=== PATIENT | female | born 1955 | race Caucasian/White ===

== ENCOUNTER 2020-02-12 12:00 | Outpatient (RCR) | payer MEDICARE, MEDICAID, SELFPAY ==
--- NOTE | 2020-01-13 13:58 | MHC.PT.EP ---
[facility] [place] Office [place] [facility] [place] [facility] [address] Johnathan Smith [address] [phone] F: [phone] F: [phone] F: [phone] F: [phone] Physical Therapy Plan of Care Date of Evaluation: 01/13/20 Date of Surgery: N/A Diagnosis: M54.5 low back pain Assessment: pt presents w/ some signs and symptoms consistent w/ kidney involvement. Will monitor and refer as needed. pt presents to physical therapy with pain, decreased range of motion, decreased strength, impaired functional mobility, impaired postural awareness, and gait deviations. pt is a fair candidate for skilled PT due to age, potential remediation of impairments, typical disease/condition progression and prognosis, comorbidities, and motivation. pt would benefit from tailored strengthening and stretching exercise program, functional training, gait training, postural re-training, neuromuscular re-education, modalities as needed for pain, and equipment safety demonstration. Frequency and Duration: The patient will be seen 2x/wk for 4 wks Short Term Goals: pt will be I w/ HEP to promote self-management of condition. pt will demo proper sitting posture w/ lumbar roll to promote neutral spine. Penitentiary Goals: pt will improve B hip flexion strength by 1 MMT grade to facilitate normalized gait pattern on even ground. pt will report statistically significant improvement in self-reported outcome measure, Sampson, to facilitate return to PLOF. Treatment Plan: Modalities to reduce pain, spasms and effusion. Manual therapy to restore motion and function. Therapeutic exercise to improve strength and flexibility. Neuromuscular re-education for posture and balance. Therapeutic activities to return to functional activities of daily living. Please sign and return to therapist. Thank you for your referral.
--- NOTE | 2020-02-12 12:42 | MHC.PT.DC ---
[facility] [place] Office [place] Office [place] [facility] [address] Johnathan Smith [address] [phone] F: [phone] F: [phone] F: [phone] F: [phone] Physical Therapy Discharge Report Diagnosis: M54.5 low back pain Date of Surgery: N/A Date of Evaluation: 01/13/20 Date of Discharge: 02/12/20 Treatments to Date: 8 Cancellations to Date: 0 No Shows to Date: 0 Discharge Status: Improved Function Independent with HEP Discharge Summary: Overall, the patient has been reporting lower levels of back pain since starting physical therapy. She was not always motivated to participate in physical therapy and often would request to leave the session early. She is independent with her home exercise program. She reported a slight improvement in her self-reported outcome measure, the Modified Oswestry Disability Index, compared to the initial evaluation. She is discharged from this physical therapy plan of care. Electronically signed by: Loretta Maurer PT, DPT Please sign and return to therapist. Thank you for your referral.
== END 2020-02-12 12:42 | disposition other institution (70) ==
LOC: HO.PT 12:00
PROVIDERS: Visit Provider Anesthesiology
DX: M54.5 Low back pain (principal)
CPT/HCPCS: 97110; 97162